=== PATIENT | male | born 2000 | race Caucasian/White ===

== ENCOUNTER 2023-08-17 17:39 | Emergency (ER) | payer SELFPAY ==
[2023-08-17 17:50] VITALS: BP 164/88; PULSE 79; RESP 16; TEMP 37.1; O2SAT 98
[2023-08-17 18:32] LABS: Basophils # 0.1 10^3/uL (0.0-0.1); Basophils % 0.3 %; Eosinophils % 0.1 %; Hematocrit 47.7 % (37-53); Lymphocytes # 1.9 10^3/uL (0.8-4.8); Lymphocytes % 8.7 %; Mean Corpuscular HGB Conc 34.2 g/dL (30-55); Mean Corpuscular Hemoglobin 30.4 pg (27-33); Mean Corpuscular Volume 88.8 fl (82-101); Mean Platelet Volume 9.7 fL (7.4-10.4); Monocytes # 1.2 10^3/uL (0.2-0.9); Monocytes % 5.4 %; Neutrophils # 18.18 10^3/uL (1.8-7.7); Neutrophils % 84.9 %; Nucleated Red Blood Cells % 0 %; Platelet Count 216 10^3/cmm (157-399); Red Blood Count 5.37 10^6/uL (3.85-5.65); Red Cell Distribution Width 12.3 % (12.1-15.1); White Blood Count 21.42 10^3/uL (3.29-11.43)
[2023-08-17 19:02] LABS: Alanine Aminotransferase 15 U/L (0-41); Albumin Level 4.8 g/dL (3.5-5.2); Alkaline Phosphatase 85 U/L (40-130); Anion Gap 12.2 (5-19); Aspartate Amino Transferase 25 U/L (0-40); Blood Urea Nitrogen 11 mg/dL (6-20); Calcium 8.9 mg/dL (8.5-10.5); Carbon Dioxide 30 mmol/L (22-29); Chloride 101 mmol/L (98-107); Globulin 2.4 g/dL (1.3-4.6); Glomerular Filtration Rate 91.8 mL/min (90-130); Glucose 90 mg/dL (65-115); Osmolality Calculated 287 mOsm/kg (285-295); Potassium 4.2 mmol/L (3.5-5.1); Sodium 139 mmol/L (136-145); Thyroid Stimulating Hormone 0.41 uIU/mL (0.27-4.20); Total Bilirubin 0.9 mg/dL (0.15-1.2); Total Protein 7.2 g/dL (6.6-8.7)
[2023-08-17 19:04] LABS: Alcohol Level < 10 mg/dL (0-10)
--- NOTE | 2023-08-17 19:20 | ECG_ITS ---
[facility] Test Date: 2023-08-17 Pat Name: Diego Cee Department: Room: Gender: Male Geophysical Party Chief: : 2000 Requested By: Alysia Suh Order Number: [id number] Marinelli MD: Carla Montalvo M.D. Measurements Intervals [employer] Rate: 58 P: 0 ID: 142 QRS: 85 QRSD: 97 T: 47 QT: 397 QTc: 392 Interpretive Statements SINUS BRADYCARDIA WITH SINUS ARRHYTHMIA POSSIBLE RIGHT VENTRICULAR CONDUCTION DELAY [RSR (QR) IN V1/V2] No previous ECG available for comparison Electronically Signed On 08-18-2023 5:23:30 CDT by Carla Montalvo M.D. [id number]
--- NOTE | 2023-08-17 19:34 | CTR_ITS ---
PROCEDURE INFORMATION: Exam: CT Head Without Contrast Exam date and time: 08/17/2023 8:44 PM Age: 23 years old Clinical indication: Injury or trauma; Other: Seizure; Patient HX: PT was found face down in shower by mom, PT states he had a headache after the injury but now it is gone, reports mild pain to left side of head from the fall. ; Additional info: Seizure, head injury TECHNIQUE: Imaging protocol: Computed tomography of the head without contrast. Axial, coronal and sagittal reformatted images were created and reviewed. Radiation optimization: All CT scans at this facility use at least one of these dose optimization techniques: automated exposure control; mA and/or kV adjustment per patient size (includes targeted exams where dose is matched to clinical indication); or iterative reconstruction. REPORTING DATA: Count of CT and Cardiac NM exams in prior 12 months: This patient has received 0 known CTs and 0 known cardiac nuclear medicine studies in the 12 months prior to the current study. COMPARISON: No relevant prior studies available. RADIATION DOSE METRICS: Total DLP (mGy-cm): 1103.41 FINDINGS: Brain: No CT evidence of acute intracranial hemorrhage or acute territorial infarction. No significant mass effect or midline shift. Basal cisterns patent. Cerebral ventricles: Normal in size and configuration. Paranasal sinuses: Unremarkable. No fluid levels. Mastoid air cells: Grossly unremarkable. Bones/joints: No acute osseous abnormality. Soft tissues: Grossly unremarkable. CT/CT head wo con* [id number] IMPRESSION: No CT evidence of acute intracranial pathology.
--- NOTE | 2023-08-17 19:34 | ED_ITS ---
HPI - Seizure General: Chief Complaint: Seizure Stated Complaint: possible seizure earlier Time Seen by Provider: 08/17/23 18:33 Source: patient, family and EMS Mode of arrival: EMS Limitations: other (unable to remember the incident) History of Present Illness: HPI Narrative: This 23-year-old male presents to the ER for evaluation of seizure that occurred prior to arrival. Patient's mom reported that patient was in the shower and she heard patient flapping all over the place. When she went in to the shower, patient was face down, having a seizure. Seizure lasted for a couple of minutes. Patient does not remember the incident but notes that he he bit his cheek. He has never had a seizure before. He complains of pain around the left episcopalian area and in his back. He denies any other injuries. Patient drinks alcohol on a regular basis. His last drink was last night. He also admitted to smoking marijuana last night. Associated symptoms: Deny chest pain or chills Review of Systems Const: Denies: chills, body aches or change in appetite Eyes: Denies: change in vision or eye discharge ENMT: Denies: throat pain, dental pain or nasal discharge Card: Denies: chest pain or lightheadedness : Denies: dysuria Musc: Reports: back pain; Denies: neck pain Neuro: Reports: seizure-like activity; Denies: weakness in extremities Psych: Denies: depression Brian/Lymph: Denies: easy bruising All/Imm: Denies: urticaria, tongue swelling or facial swelling PFS ED PFSH: Social History (Updated 03/16/20 @ 13:40 by Felicitas Stevens LPN) Smoking and tobacco status: current every day smoker Alcohol intake: never Substance/Drug Use: never Physical Exam Const: COMMON NORMALS: no acute distress, patient oriented x3, no limitations and alert HENMT: COMMON NORMALS: normocephalic HEAD & SCALP: normocephalic Eye: COMMON NORMALS: EOMs intact bilaterally Neck/C-Spine: COMMON NORMALS: full ROM and supple Chest: COMMONS NORMALS: normal inspection of the chest Resp: COMMON NORMALS: normal respiratory effort, No retractions, No use of accessory muscles and clear to auscultation bilaterally AUSCULTATION: clear to auscultation bilaterally Cardio: COMMON NORMALS: regular rate, regular rhythm and No murmurs present (Cardio) RATE: regular rate RHYTHM: regular rhythm GI: COMMON NORMALS: Normal to inspection, nondistended, normoactive bowel sounds present and non-tender : COMMON NORMALS: Yes no CVA tenderness BLADDER/KIDNEY EXAM: Yes no CVA tenderness Back/Pelvis: COMMON NORMALS: no CVA tenderness and no thoracic nor lumbar tenderness THORACIC SPINE/UPPER BACK: Yes normal to inspection and Yes thoracic spinal tenderness LUMBAR SPINE/LOWER BACK: Yes normal to inspection and Yes lumbar spinal tenderness Extremity: GENERAL: Yes normal exam except as noted Neuro: COMMON NORMALS: patient oriented x3 and no focal motor deficits SENSORIUM/ORIENTATION: Yes alert Psych: COMMON NORMALS: mental status grossly normal and cooperative Course Vital Signs: Vital signs: Vital Signs Temperature 98.8 F 08/17/23 17:50 Pulse Rate 76 08/17/23 19:39 Respiratory Rate 16 08/17/23 19:39 Blood Pressure 147/81 08/17/23 19:39 Pulse Oximetry 92 08/17/23 19:39 Oxygen Delivery Me thod Room Air 08/17/23 17:50 MDM - Seizure MDM Narrative Medical decision making narrative: Medical decision making: Patient was brought in for evaluation following a seizure episode witnessed by mom. This is patient's first seizure. CT brain and completed blood tests are unremarkable. Case discussed with Dr. Zavaleta who advised that patient should not drive for 6 months. However no antiepileptics are needed at this time. Should patient have another seizure, he needs to return to the ER immediately. Patient verbalized understanding and agrees with the plan. Lab Data 08/17/23 18:24 08/17/23 18:24 Labs: Radiology Impressions Head CT 08/17/23 19:34 IMPRESSION: No CT evidence of acute intracranial pathology. Lumbar Spine X-Ray 08/17/23 19:53 IMPRESSION: No acute radiographic findings. Thoracic Spine X-Ray 08/17/23 19:53 IMPRESSION: No acute radiographic findings. Laboratory Results WBC 21.42 10^3/uL (3.29-11.43) H 08/17/23 18:24 RBC 5.37 10^6/uL (3.85-5.65) 08/17/23 18:24 Hgb 16.30 g/dL (11.27-16.99) 08/17/23 18:24 Hct 47.7 % (37-53) 08/17/23 18: MCV 88.8 fl (82-101) 08/17/23 18: MCH 30.4 pg (27-33) 08/17/23 18: MCHC 34.2 g/dL (30-55) 08/17/23 18:24 RDW 12.3 % (12.1-15.1) 08/17/23 18: Plt Count 216 10^3/cmm (157-399) 08/17/23 18:24 MPV 9.7 fL (7.4-10.4) 08/17/23 18: Neut % (Auto) 84.9 % 08/17/23 18: Lymph % (Auto) 8.7 % 08/17/23 18: Davison % (Auto) 5.4 % 08/17/23 18: Eos % (Auto) 0.1 % 08/17/23 18: Baso % (Auto) 0.3 % 08/17/23 18: Neut # (Auto) 18.18 10^3/uL (1.8-7.7) H 08/17/23 18:24 Lymph # (Auto) 1.9 10^3/uL (0.8-4.8) 08/17/23 18:24 Davison # (Auto) 1.2 10^3/uL (0.2-0.9) H 08/17/23 18:24 Eos # (Auto) 0.0 10^3/uL (0.0-0.8) 08/17/23 18: Baso # (Auto) 0.1 10^3/uL (0.0-0.1) 08/17/23 18: Nucleated RBC % (auto) 0 % 08/17/23 18: Nucleated RBCs # 0.0 /100WBC 08/17/23 18:24 Sodium 139 mmol/L (136-145) 08/17/23 18:24 Potassium 4.2 mmol/L (3.5-5.1) 08/17/23 18:24 Chloride 101 mmol/L (98-107) 08/17/23 18: Carbon Dioxide 30 mmol/L (22-29) H 08/17/23 18:24 Anion Gap 12.2 (5-19) 08/17/23 18:24 BUN 11 mg/dL (6-20) 08/17/23 18:24 Creatinine 1.0 mg/dL (0.7-1.2) 08/17/23 18:24 GFR Calculation 91.8 mL/min (90-130) 08/17/23 18:24 Glucose 90 mg/dL (65-115) 08/17/23 18:24 Calculated Osmolality 287 mOsm/kg (285-295) 08/17/23 18:24 Calcium 8.9 mg/dL (8.5-10.5) 08/17/23 18:24 Total Bilirubin 0.9 mg/dL (0.15-1.2) 08/17/23 18:24 AST 25 U/L (0-40) 08/17/23 18:24 ALT 15 U/L (0-41) 08/17/23 18:24 Alkaline Phosphatase 85 U/L (40-130) 08/17/23 18:24 Total Protein 7.2 g/dL (6.6-8.7) 08/17/23 18:24 Albumin 4.8 g/dL (3.5-5.2) 08/17/23 18:24 Globulin 2.4 g/dL (1.3-4.6) 08/17/23 18:24 TSH 0.41 uIU/mL (0.27-4.20) 08/17/23 18:24 Ethyl Alcohol < 10 mg/dL (0-10) 08/17/23 18:24 All radiology interpretation(s) finalized by discharge Discharge Plan Discharge Patient Disposition: Home Clinical Impression: New onset seizure Condition: Stable Prescriptions: No Action doxycycline hyclate 100 mg capsule 100 mg PO BID PRN (Reason: tick/spider ) 14 Days Qty: 28 0RF Discharge Orders: Discharge ED (Routine); Ordered 08/17/23 Ordered By: Ghislaine Cardenas Referrals: Madiha Myers FNP [Primary Care Provider] - Discharge Diet: Usual diet Discharge Activity: Resume usual activity Patient Instructions: Opioid Safety, Pain Management Activity Restrictions/Additional Instructions: Being your first seizure, no antiepileptic is needed at this time. However, as stipulated by law, you should not drive for 6 months. In addition, avoid climbing heights, swimming or operating heavy machinery. Follow-up with your primary care physician within a week for reevaluation. Avoid excessive alcohol intake or use of recreational substances. Return if you have another episode of seizure or develop any new concerning symptoms. Coding Level of Care Code ED [employer] for Hany Barajas
[2023-08-17 19:39] VITALS: BP 147/81; PULSE 76; RESP 16; O2SAT 92
--- NOTE | 2023-08-17 19:53 | XRR_ITS ---
PROCEDURE INFORMATION: Exam: XR Thoracic Spine Exam date and time: 08/17/2023 8:04 PM Age: 23 years old Clinical indication: Injury or trauma; Fall; Other: Unknown; Additional info: Seizure and fall TECHNIQUE: Imaging protocol: Radiologic exam of the thoracic spine. Views: 3 views. COMPARISON: No relevant prior studies available. FINDINGS: Bones/joints: Normal. No acute fracture. Normal alignment. Soft tissues: Grossly unremarkable. XR/XR thoracic spine 3V* [id number] IMPRESSION: No acute radiographic findings.
--- NOTE | 2023-08-17 19:53 | XRR_ITS ---
PROCEDURE INFORMATION: Exam: XR Lumbosacral Spine Exam date and time: 08/17/2023 8:04 PM Age: 23 years old Clinical indication: Injury or trauma; Fall; Other: Unknown; Additional info: Seizure and fall TECHNIQUE: Imaging protocol: Radiologic exam of the lumbosacral spine. Views: 2 or 3 views. COMPARISON: No relevant prior studies available. FINDINGS: Bones/joints: Normal. No acute fracture. Normal alignment. Soft tissues: Grossly unremarkable. XR/XR lumbar spine 2-3V* [id number] IMPRESSION: No acute radiographic findings.
[2023-08-17] MEDS: ketorolac 30 mg/mL INJ IVP (20:16)
== END 2023-08-17 21:37 | disposition home or self-care (01) ==
PROVIDERS: Physician Assistant; Emergency Provider Family Medicine; PCP Nurse Practitioner
DX: R56.9 Unspecified convulsions (principal); F17.210 Nicotine dependence, cigarettes, uncomplicated
CPT/HCPCS: 36415; 70450; 72072; 72100; 80053; 80307; 84443; 85025; 93005; 96374; 99285; J1885